=== PATIENT | female | born 1970 | race Caucasian/White ===

== ENCOUNTER 2016-10-31 19:57 | Emergency (ER) | payer SELFPAY ==
[2016-10-31] MEDS ORDERED: NORVASC PO (20:10)
[2016-10-31] MEDS ORDERED: METOPROLOL TAR100 MG PO (20:11)
[2016-10-31] MEDS ORDERED: BP MED (20:12)
[2016-10-31] MEDS ORDERED: LASIX PO (20:12)
[2016-10-31] MEDS ORDERED: HCTZ PO (20:12)
[2016-10-31] MEDS ORDERED: HYDROCODON-ACE1 EAC5 PO (20:13)
[2016-10-31] MEDS ORDERED: ALBUTEROL2.5 MG/3 M INH (20:14)
[2016-10-31] MEDS ORDERED: ALBUTEROL17 GM INH (20:14)
== END 2016-10-31 20:37 | disposition home or self-care (01) ==
LOC: SED 19:57
DX: J01.00 Acute maxillary sinusitis, unspecified (principal); I10 Essential (primary) hypertension; J45.909 Unspecified asthma, uncomplicated; Z90.49 Acquired absence of other specified parts of digestive tract
CPT/HCPCS: 99283